=== PATIENT | male | born 1950 | race Caucasian/White ===

== ENCOUNTER → 2022-08-17 09:54 | Outpatient (ROUT) | payer MEDICARE, SELFPAY ==
[2022-08-17 10:08] LABS: INR 1.1 (0.9-1.3); Prothrombin Time 12.6 SECONDS (10.1-12.7)
== END ==
PROVIDERS: Visit Provider Registered Nurse
DX: R23.8 Other skin changes (principal)
CPT/HCPCS: 85610

== ENCOUNTER → 2022-08-21 06:41 | Outpatient (CLI) | payer MEDICARE, OTHER, SELFPAY ==
--- NOTE | 2022-08-21 06:48 | DI.ECHO.S_ITS ---
[facility]---------+ [facility] +---------+ : : [address] : : [place] : : : : [id number] : : : : Phone: [phone]---------+ Echocardiogram Report + + :Name: MISSY STEVENSON Study Date: 08/21/2022 Height: 67.5 in : :[facility] ReadingLocation: Weight: 188 lb : : Gender: Male BSA: 2.0 m2 : :: 1950 Age: 72 yrs BP: 175/100 mmHg: :Reason For Study: DYSPNEA : :Ordering Physician: MALACHI, : :CYNTHIA Performed By: Apoorva Marie : :Referring: CYNTHIA LY : + + Interpretation Summary The ejection fraction is estimated to be 50-55%. There are no obvious focal wall motion abnormalities noted but poor endocardial definition reduces the sensitivity for the detection of such. There is mild mitral regurgitation. There is trace tricuspid regurgitation. Procedure: A two-dimensional transthoracic echocardiogram with color flow and Doppler was performed. The study quality was technically adequate. There is no prior echocardiogram noted for this patient. The patient was in sinus rhythm with heart rates between 75-85 bpm during the exam. Left Ventricle: The left ventricle is normal in size and wall thickness. The ejection fraction is estimated to be 50-55%. There are no obvious focal wall motion abnormalities noted but poor endocardial definition reduces the sensitivity for the detection of such. Right Ventricle: The right ventricle is normal in size and function. Atria: The left atrial size is normal. Right atrial size is normal. There is no Doppler evidence for an interatrial shunt. Mitral Valve: The mitral valve is normal in structure and function. There is mild mitral regurgitation. Aortic Valve: The aortic valve opens well. There is no aortic valve stenosis. There is trace aortic regurgitation. Tricuspid Valve: The tricuspid valve is normal in structure and function. There is trace tricuspid regurgitation. Pulmonic Valve: The pulmonic valve is not well visualized. Great Vessels: The aortic root is mildly dilated. The ascending aorta could not be visualized. The IVC is of normal diameter and collapses greater than 50% with a sniff. This suggests a low right atrial pressure of 3 mm Hg. Pericardium/ Pleura There is no pericardial effusion. There is no pleural effusion. MMode/2D Measurements & Calculations LVIDd: 4.9 cm LVOT diam: 2.3 cm LVIDs: 3.4 cm Ao root diam: 4.2 cm FS: 30.1 % Ao Arch Diam (Prox Trans): 3.3 cm IVSd: 1.0 cm LVPWd: 0.92 cm LV altamirano. diameter/BSA (cm/m^2): 2.5 LV sys. diameter/BSA (cm/m^2): 1.7 LA A2 area: 20.7 cm2 RA long axis: 4.3 cm LA A4 area: 13.3 cm2 RA area: 13.3 cm2 LA length (vol): 4.5 cm RA vol: 34.8 ml LA vol: 52.4 ml RA : 17.6 ml/m2 LA vol index: 26.5 ml/m2 IVC diam: 1.4 cm RVD1 (basal): 3.8 cm TAPSE: 2.1 cm Doppler Measurements & Calculations Ao V2 max: 136.6 cm/sec LVOT Max Frandy: 79.9 cm/sec Ao V2 mean: 99.5 cm/sec LV V1 max P.6 mmHg Ao max P.5 mmHg LV V1 VTI: 13.8 cm Ao mean P.4 mmHg AKIL(I,D): 2.2 cm2 Ao V2 VTI: 24.6 cm AKIL(V,D): 2.3 cm2 sev ratio: 0.56 AKIL indexed to BSA (cm^2/m^2): 1.1 MV E max frandy: 44.8 cm/sec SV(LVOT): 55.2 ml MV A max frandy: 74.3 cm/sec MV E/A: 0.60 Med Peak E' Frandy: 6.3 cm/sec E/E' med: 7.1 Lat Peak E' Rfandy: 9.0 cm/sec E/E' lat: 5.0 E/e' average: 6.0 MV dec time: 0.25 sec Reading Physician:02:05 PM
[2022-08-21 07:53] LABS: COVID19 -Nasal RAPID Negative (Negative)
== END ==
PROVIDERS: Radiology Diagnostic Radiology; PCP Registered Nurse; Referring Provider Registered Nurse; Visit Provider Registered Nurse
DX: I34.0 Nonrheumatic mitral (valve) insufficiency (principal); I77.810 Thoracic aortic ectasia; R06.09 Other forms of dyspnea; R01.1 Cardiac murmur, unspecified; Z87.891 Personal history of nicotine dependence; Z20.822 Contact with and (suspected) exposure to COVID-19
CPT/HCPCS: 87635; 93306; C9803

== ENCOUNTER → 2022-08-22 07:46 | Outpatient (CLI) | payer MEDICARE, OTHER, SELFPAY ==
--- NOTE | 2022-08-22 | DI.NM.S_ITS ---
PROCEDURE: NM EXERCISE TREADMILL NON NUC COMPARISON: None. INDICATIONS: Other forms of dyspnea FINDINGS: The patient exercised for 6 minutes and 12 seconds reaching 111% of maximum predicted heart rate. Hypertension at rest (BP 142/100mmHg) and hypertensive response to exercise (BP 178/110mmHg). No diagnostic ST changes and no angina during the study. Frequent PVCs and one 4 beat run of non-sustained tachycardia noted during the study. Average exercise capacity (7.2 METs, CHLOE 0%). IMPRESSION: Low risk, normal study from inducible ischemia standpoint with average exercise capacity. Hypertension at rest (BP 142/100mmHg) and hypertensive response to exercise (BP 178/110mmHg). Frequent PVCs and one 4 beat run of non-sustained tachycardia noted during the study. Dictated by: Marilin Manriquez MD on 08/22/2022 at 16:35 Approved by: Marilin Manriquez MD on 08/22/2022 at 16:38
== END ==
PROVIDERS: PCP Registered Nurse; Referring Provider Registered Nurse; Visit Provider Registered Nurse
DX: R06.09 Other forms of dyspnea (principal); Z87.891 Personal history of nicotine dependence; R01.1 Cardiac murmur, unspecified
CPT/HCPCS: 93017

== ENCOUNTER → 2022-08-26 09:40 | Outpatient (CLI) | payer MEDICARE, OTHER, SELFPAY ==
--- NOTE | 2022-08-26 09:44 | DI.MRI.S_ITS ---
PROCEDURE: MR ABDOMEN WO/W CON INDICATIONS: OTHER SPECIFIED DISEASES OF THE LIVER TECHNIQUE: Coronal HASTE, axial 2D FLASH in- and [id number]; axial breath-hold T2 FSE. Dynamic axial VIBE during the administration of contrast; post-contrast coronal VIBE or 2D FLASH with fat saturation from the hepatic dome to the iliac crests. Optional diffusion weighted imaging and ADC may be performed. COMPARISON: None. FINDINGS: Image quality: Excellent. Lung bases: No basal pleural effusions. Heart size is normal. Liver: The liver is normal size and signal with a smooth margin. In segment seven, there is a lobulated T2 hyperintense mass with discontinuous peripheral nodular enhancement in the early phase, and gradual wash-in. In segment 4A, finally septated 2.7 cm nonenhancing cyst is present. A few other tiny cysts are seen in the right and left lobes. Other Solid organs: 2.7 x 2.5 cm solid left adrenal mass with heterogeneous signal loss on T1 out of phase imaging. No right adrenal nodules. Gallbladder is normal without stones or wall thickening. Biliary system is non dilated. Pancreas is normal in morphology. Spleen is normal in size and enhancement. Both kidneys demonstrate normal size and enhancement, without hydronephrosis. Nodes and vessels: 2.7 x 2.4 cm T2 hyperintense lesion with some heterogeneity, but well-marginated, is present in the left periaortic retroperitoneum behind the diaphragmatic stephane. No retroperitoneal or mesenteric adenopathy by size criteria. Aorta and inferior vena cava are normal in size. Bowel and peritoneum: Unenhanced bowel loops are normal in caliber. No free fluid. Bones and soft tissues: No ventral hernias. Bone marrow is normal in overall signal. IMPRESSION: 1. Benign hepatic cavernous hemangioma and benign hepatic cysts. 2. 2.7 cm left adrenal mass with signal loss suggesting intracellular lipid. Findings are most consistent with an adrenal adenoma. Twelve month follow-up to assess for stability is recommended. 3. Nonenhancing T2 hyperintense left periaortic masses suggestive of a lymph node, prominent cysterna chyli, or lymphangioma. Dictated by: Rachel Edge M.D. on 08/28/2022 at 8:20 Approved by: Rachel Edge M.D. on 08/28/2022 at 9:08
== END ==
PROVIDERS: PCP Registered Nurse; Referring Provider Registered Nurse; Visit Provider Registered Nurse
DX: K76.89 Other specified diseases of liver (principal); D18.03 Hemangioma of intra-abdominal structures; E27.9 Disorder of adrenal gland, unspecified
CPT/HCPCS: 74183; A9579

== ENCOUNTER → 2022-09-01 09:43 | Outpatient (CLI) | payer MEDICARE, OTHER, SELFPAY ==
--- NOTE | 2022-09-01 | DI.US.S_ITS ---
PROCEDURE: US THYROID INDICATIONS: Nontoxic single thyroid nodule TECHNIQUE: Real-time scanning was performed of the thyroid gland, with image documentation. COMPARISON: Located Within [facility], US, THYROID, 01/20/2014, 13:31. FINDINGS: Right: Thyroid lobe measures 5.2 x 2.3 x 2.8 cm, and is homogeneous in echotexture. Left: Thyroid lobe measures 5.4 x 2.7 x 2.3 cm, and is homogenous in echotexture. Nodule number: 1 Location: Right inferior Size: 2.5 x 1.9 x 2.7 cm. Previously 1.7 x 1.3 x 1.6 cm. Composition: Solid Echogenicity: Hypoechoic Shape: Wider than tall Margins: Smooth Echogenic foci: None Total points: 4 ACR TI-RADS category: Moderately suspicious Nodule number: 2 Location: Left mid Size: 1.4 x 1.0 x 1.4 cm, previously 0.7 x 0.7 x 0.8 cm Composition: Solid Echogenicity: Hypoechoic Shape: wider than tall. Margins: Smooth Echogenic foci: None Total points: 4 ACR TI-RADS category: Moderately suspicious Nodule number: 3 Location: Left inferior Size: 0.7 x 0.6 x 0.6 cm, previously 0.5 x 0.4 x 0.5 cm. Composition: Solid Echogenicity: Hypoechoic Shape: wider than tall. Margins: Smooth Echogenic foci: None Total points: 4 ACR TI-RADS category: Moderately suspicious IMPRESSION: Bilateral thyroid nodules, which have increased in size when compared to the remote prior ultrasound from 01/20/2014. Recommend ultrasound-guided fine-needle aspiration of the 2.7 cm right thyroid nodule and sonographic follow-up of additional nodules based on guidelines below. ACR TI-RADS definitions and recommendations: TI-RADS 1 (benign): 0 points. FNA not needed. TI-RADS 2 (not suspicious): 2 points. FNA not needed. TI-RADS 3 (mildly suspicious): 3 points. * FNA if 2.5 cm or larger, follow up if 1.5 cm or larger (at 1, 3, and 5 years). TI-RADS 4 (moderately suspicious): 4-6 points. * FNA if 1.5 cm or larger, follow up if 1 cm or larger (at 1, 2, 3, and 5 years). TI-RADS 5 (highly suspicious): 7 points or more. * FNA if 1 cm or larger, follow up if 0.5 cm or larger (every year for 5 years). Approved by: Conor Dukes M.D. on 09/01/2022 at 11:40
== END ==
PROVIDERS: PCP Registered Nurse; Referring Provider Registered Nurse; Visit Provider Registered Nurse
DX: E04.2 Nontoxic multinodular goiter (principal)
CPT/HCPCS: 76536

== ENCOUNTER → 2022-09-18 08:58 | Outpatient (CLI) | payer MEDICARE, OTHER, SELFPAY ==
--- NOTE | 2022-09-18 | DI.US.S_ITS ---
PROCEDURE: US FINE NEEDLE ASPIRATION INDICATIONS: THYROID NODULE TECHNIQUE: The indications, alternatives, benefits, risks, and complications of the procedure were explained to the patient. Written informed consent was obtained and placed in the chart. The thyroid region was examined sonographically and a site was chosen for ultrasound guided percutaneous sampling. The skin was prepared and draped in the usual fashion, and anesthetized with 1% lidocaine infiltrated from the skin down to the thyroid gland. Multiple passes were then performed, with contents emptied into an appropriate pathology specimen container. A bandage was applied to the area of access at completion of the study. COMPARISON: [facility], US, US THYROID, 09/01/2022, 9:56. FINDINGS: Location of lesion sampled: Right inferior thyroid Potter: 25 gauge and 22 gauge hypodermic needles. Number of passes: 6 Medications: 1% lidocaine for local anaesthesia. Complications: None. IMPRESSION: Successful ultrasound-guided thyroid nodule fine needle aspiration, with cytology results pending. Please see chart below for management recommendations based on cytology results. [facility] ReportingRecommendationsNon-diagnostic* Repeat US-guided FNA, with on-site cytology evaluation if possible. * Repeated non-diagnostic nodules without high suspicion US features: close observation vs surgical consult. * Consider surgery if nodule has high suspicion US features, grows >20% in 2 dimensions on followup, or patient has clinical risk factors for malignancy. Benign* If nodule has high suspicion US features: repeat US and FNA within 12 months. * If nodule has low to intermediate suspicion US features: repeat US at 12-24 months. If nodule grows (20% increase in at least 2 dimensions, with minimal increase of 2 mm or >50% change in volume), or development of new suspicious US features, then repeat FNA or continue followup. * If nodule has very low suspicion US features: followup US at >24 months. Atypia of undetermined significance, follicular lesion of undetermined significanceRepeat FNA, molecular testing, followup US, or surgical consult.Follicular neoplasm, suspicious for follicular neoplasmSurgical consult; also consider molecular testing. Suspicious for malignancySurgical consult.MalignantSurgical consult. Dictated by: Conor Dukes M.D. on 09/18/2022 at 10:58 Approved by: Conor Dukes M.D. on 09/18/2022 at 11:01
--- NOTE | 2022-09-18 | PATH_ITS ---
Note [facility] Accession Number: [id number] TESTS RESULT FLAG UNITS REF RANGE LAB Clinician Provided Cytology Information No. of containers..01 Other (Miscellaneous) No. of containers..02 Previously Prepared Cytology Slide Source: RIGHT INFERIOR THYROID NODULE DIAGNOSIS: RIGHT INFERIOR THYROID NODULE INCONCLUSIVE. BETHESDA CATEGORY III. ATYPIA OF UNDETERMINED SIGNIFICANCE. MOLECULAR STUDIES REQUESTED; RESULTS WILL BE REPORTED SEPARATELY. Pathologist ICD10: R89.6, E04.1 Signed out by: Monserrat Ambriz MD, Pathologist NPI- [id number] Performed by: Chepe Bingham, Smoking Tobacco Cutter Operator ([facility]) Gross description: 30 CC, PINK, CLEAR RECEIVED IN CYTOLYT WHIE CAP CONTAINER RECEIVED 6 ALCOHOL FIXED SLIDES IN 2 GREEN CAP COFFINS RECEIVED 6 FIXED SLIDES IN 2 SLIDE HOLDERS RECEIVED 1 RNA VIAL /RZA 09/19/[address] [place] [address] FLAG LEGEND: L-Low Normal,H-High Normal,LL-Alert Low,HH-Alert High <-Panic Low,>-Panic High,A-Abnormal,AA-Critical Abnormal Performed at: 01 =[facility] [address], [place] [address] Jay Waldron MD, Performed at: 01 [facility] [address], [place], [place] [id number] MD Jay Waldron MD Phone: [phone]
== END ==
PROVIDERS: PCP Registered Nurse; Referring Provider Registered Nurse; Visit Provider Registered Nurse
DX: E04.1 Nontoxic single thyroid nodule (principal)
CPT/HCPCS: 10005

== ENCOUNTER → 2023-06-05 12:11 | Outpatient (CLI) | payer MEDICARE, OTHER, SELFPAY ==
--- NOTE | 2023-06-05 | DI.US.S_ITS ---
PROCEDURE: US THYROID INDICATIONS: THYROID NODULE TECHNIQUE: Real-time scanning was performed of the thyroid gland, with image documentation. COMPARISON: [facility], US, US THYROID, 09/01/2022, 9:56. FINDINGS: Right: Thyroid lobe measures 6.6 x 3.2 x 2.3 cm, and is slightly heterogeneous in echotexture. Left: Thyroid lobe measures 6.0 x 2.6 x 2.2 cm, and is slightly heterogeneous in echotexture. Isthmus: 3.3 mm thick. Nodule number: 1 Location: Right inferior pole Size: 2.8 x 1.9 x 2.2 cm, previously 2.5 x 1.9 x 2.7 cm. Stable Composition: Solid Echogenicity: Mildly hypoechoic Shape: wider than tall. Margins: Smooth Echogenic foci: No Total points: 4 ACR TI-RADS category: Moderately suspicious Nodule number: 2 Location: Left midpole Size: 1.4 x 0.8 x 0.7 cm, previously 1.4 x 1.0 x 1.4 cm. Stable Composition: Solid Echogenicity: Hypoechoic Shape: wider than tall. Margins: Smooth Echogenic foci: No Total points: 4 ACR TI-RADS category: Moderately suspicious Nodule number: 3 Location: Left inferior pole Size: 0.9 x 0.6 x 0.7 cm, previously 0.7 x 0.6 x 0.6 cm. Stable Composition: Solid Echogenicity: Hypoechoic Shape: wider than tall. Margins: Smooth Echogenic foci: Short linear Total points: 7 ACR TI-RADS category: Highly suspicious IMPRESSION: Multiple thyroid nodules again seen. Follow-up in 1 year recommended. ACR TI-RADS definitions and recommendations: TI-RADS 1 (benign): 0 points. FNA not needed. TI-RADS 2 (not suspicious): 2 points. FNA not needed. TI-RADS 3 (mildly suspicious): 3 points. * FNA if 2.5 cm or larger, follow up if 1.5 cm or larger (at 1, 3, and 5 years). TI-RADS 4 (moderately suspicious): 4-6 points. * FNA if 1.5 cm or larger, follow up if 1 cm or larger (at 1, 2, 3, and 5 years). TI-RADS 5 (highly suspicious): 7 points or more. * FNA if 1 cm or larger, follow up if 0.5 cm or larger (every year for 5 years). Dictated by: Rachel Edge M.D. on 06/05/2023 at 17:30 Approved by: Rachel Edge M.D. on 06/05/2023 at 17:38
== END ==
PROVIDERS: PCP Registered Nurse; Referring Provider Registered Nurse; Visit Provider Registered Nurse
DX: E04.2 Nontoxic multinodular goiter (principal)
CPT/HCPCS: 76536

== ENCOUNTER → 2023-06-26 09:32 | Outpatient (CLI) | payer MEDICARE, OTHER, SELFPAY ==
[2023-06-26 12:19] LABS: Prostate Specific Antigen < 0.064 ng/mL (0.10-4.00)
== END ==
PROVIDERS: PCP Registered Nurse; Referring Provider Radiology Radiation Oncology; Visit Provider Radiology Radiation Oncology
DX: C61 Malignant neoplasm of prostate (principal)
CPT/HCPCS: 36415; 84153

== ENCOUNTER → 2023-07-19 09:42 | Outpatient (CLI) | payer MEDICARE, OTHER, SELFPAY | LOC: RESP 09:43 | PROVIDERS: PCP Registered Nurse; Referring Provider Registered Nurse; Visit Provider Registered Nurse | DX: R06.09 Other forms of dyspnea (principal); Z87.891 Personal history of nicotine dependence; J98.8 Other specified respiratory disorders | CPT/HCPCS: 94060; 94726; 94729 ==

== ENCOUNTER → 2023-08-16 06:53 | Outpatient (CLI) | payer MEDICARE, OTHER, SELFPAY ==
--- NOTE | 2023-08-16 06:56 | DI.ECHO.S_ITS ---
[facility]---------+ [facility] +---------+ : : [address] [place] : : : : [id number] : : : : Phone: [phone]---------+ Echocardiogram Report + + :Name: MISSY STEVENSON Study Date: 08/16/2023 Height: 67.5 in: :[facility] ReadingLocation: Weight: 173 lb : : Gender: Male BSA: 1.9 m2 : :: 1950 Age: 73 yrs BP: 129/82 mmHg: :Reason For Study: DYSPNEA ON EXERTION : :Ordering Physician: JUNE, : :IMANI Performed By: Apoorva Marie : :Referring: IMANI WATKINS : + + Interpretation Summary The left ventricle is normal in size and wall thickness. The left ventricular ejection fraction is normal. The ejection fraction is estimated to be 60-65%. Previous LVEF 50 to 55%. The right ventricle is normal in size and function. No significant valvular pathology seen. The IVC is of normal diameter and collapses greater than 50% with a sniff. This suggests a low right atrial pressure of 3 mm Hg. Procedure: A two-dimensional transthoracic echocardiogram with color flow and Doppler was performed. The study quality was technically adequate. Comparison is made with the echocardiogram of 08/21/2022. The patient was in normal sinus rhythm during the exam. The patient had occasional PVCs during the exam. Left Ventricle: The left ventricle is normal in size and wall thickness. There is no thrombus. The ejection fraction is estimated to be 60-65%. The left ventricular ejection fraction is normal. There are no focal wall motion abnormalities. Diastolic parameters suggest a relaxation abnormality of the left ventricle, consistent with probable normal filling pressures. Right Ventricle: The right ventricle is normal in size and function. Atria: The left atrial size is normal. There has been no significant change since the previous study. Right atrial size is normal. There is no Doppler evidence for an interatrial shunt. Mitral Valve: There is mild to moderate mitral annular calcification. The mitral valve leaflets appear borderline thickened, but open well. Posterior mitral annulus calcification extending into the left atrium. No significant mitral valve stenosis. There is trace mitral regurgitation. Aortic Valve: The aortic valve is not well visualized. The aortic valve is mildly calcified. The aortic valve is trileaflet. There is no aortic valve stenosis. There is trace aortic regurgitation. Tricuspid Valve: The tricuspid valve is normal in structure and function. There is trace tricuspid regurgitation. Pulmonary artery pressures cannot be estimated because of the lack of a measurable TR jet velocity. Pulmonic Valve: The pulmonic valve is not well seen, but is grossly normal. There is no pulmonic valvular regurgitation. Great Vessels: The aortic root is mildly dilated. The ascending aorta could not be visualized. The IVC is of normal diameter and collapses greater than 50% with a sniff. This suggests a low right atrial pressure of 3 mm Hg. Pericardium/ Pleura There is no pericardial effusion. There is no pleural effusion. MMode/2D Measurements & Calculations LVIDd: 5.6 cm LVOT diam: 2.4 cm LVIDs: 3.8 cm Ao root diam: 4.1 cm FS: 32.6 % IVSd: 1.0 cm LVPWd: 0.72 cm LV altamirano. diameter/BSA (cm/m^2): 2.9 LV sys. diameter/BSA (cm/m^2): 2.0 LA A2 area: 22.2 cm2 RA long axis: 4.7 cm LA A4 area: 10.6 cm2 RA area: 13.9 cm2 LA length (vol): 4.6 cm RA vol: 34.8 ml LA vol: 43.0 ml RA : 18.2 ml/m2 LA vol index: 22.5 ml/m2 IVC diam: 0.54 cm RVD1 (basal): 3.7 cm RVD2 (mid): 2.7 cm TAPSE: 1.9 cm Doppler Measurements & Calculations Ao V2 max: 185.4 cm/sec LVOT Max Frandy: 93.2 cm/sec Ao V2 mean: 133.2 cm/sec LV V1 max P.5 mmHg Ao max P.8 mmHg LV V1 VTI: 16.0 cm Ao mean P.8 mmHg AKIL(I,D): 2.4 cm2 Ao V2 VTI: 30.4 cm AKIL(V,D): 2.3 cm2 sev ratio: 0.53 AKIL indexed to BSA (cm^2/m^2): 1.3 MV E max frandy: 60.7 cm/sec PA V2 max: 92.3 cm/sec MV A max frandy: 96.6 cm/sec PA V2 mean: 62.9 cm/sec MV E/A: 0.63 PA mean P.8 mmHg Med Peak E' Frandy: 6.3 cm/sec PA pr(Accel): 43.0 mmHg E/E' med: 9.7 Lat Peak E' Frandy: 8.8 cm/sec E/E' lat: 6.9 E/e' average: 8.3 MV dec time: 0.25 sec SV(OT): 74.1 ml Reading Physician:02:08 PM
== END ==
LOC: ECHO 06:54
PROVIDERS: PCP Registered Nurse; Referring Provider Registered Nurse; Visit Provider Registered Nurse
DX: I34.81 Nonrheumatic mitral (valve) annulus calcification (principal); I77.810 Thoracic aortic ectasia; R06.09 Other forms of dyspnea
CPT/HCPCS: 93306

== ENCOUNTER → 2023-09-21 14:57 | Outpatient (CLI) | payer MEDICARE, OTHER, SELFPAY ==
--- NOTE | 2023-09-21 14:59 | DI.MRI.S_ITS ---
PROCEDURE: MR ANGIO CHEST WO/W CON INDICATIONS: Thoracic aortic ectasia TECHNIQUE: Precontrast axial, coronal, and sagittal TruFISP acquired through the thoracic aorta. Dynamic coronal MRA using Care Bolus timing of the thorax during the administration of contrast, with 3-dimensional maximum intensity projection (MIP) reformats performed. COMPARISON: [facility], , EC ECHO DOPPLER COMPLETE, 08/16/2023, 7:29. Outside Facility, RG, CT PET SKULL BASE TO MID THIGH, 03/08/2023, 15:00. FINDINGS: Image quality: Excellent. Thoracic aorta: The ascending thoracic aorta measures up to 3.7 cm in oblique axial diameter. The thoracic arch has a normal appearance. There is moderate tortuosity of the descending thoracic aorta. No aneurysmal dilatation. No aortic dissection. No wall thickening or periaortic fat stranding. Great vessels: There is conventional anatomy of the great vessels. No stenosis visualized. Extravascular structures: No mediastinal mass lesions or adenopathy. Heart is normal size. No pleural effusions. There is a T2 hypointense 2.2 cm mass within the right adrenal gland. Limited visualization of the upper abdomen is otherwise unremarkable. IMPRESSION: 1. No aneurysmal dilatation of the ascending thoracic aorta. 2. Questionable left adrenal gland mass which is incompletely characterized. This was likely present on the PET-CT dated March 08, 2023 and did not demonstrate increased FDG activity. If further characterization is warranted, adrenal mass protocol CT or MRI could be used. Dictated by: Frieda Mobley M.D. on 09/21/2023 at 17:08 Approved by: Frieda Mobley M.D. on 09/21/2023 at 17:16
== END ==
PROVIDERS: PCP Registered Nurse; Referring Provider Internal Medicine Cardiovascular Disease; Visit Provider Internal Medicine Cardiovascular Disease
DX: I77.810 Thoracic aortic ectasia (principal)
CPT/HCPCS: C8911; A9579